=== PATIENT | male | born 1970 | race American Indian/Alaskan Native ===

== ENCOUNTER 2023-07-30 21:01 | Emergency (ER) | payer MEDICARE ==
[2023-07-30 21:29] VITALS: TEMP 97.8
[2023-07-30] MEDS ORDERED: Sodium Chloride 0.9% 1000 ML 1,000 ML ONE (21:41)
[2023-07-30 21:42] LABS: Absolute Neutrophil Ct (ANC) 6.41 x10^3/uL (1.4-6.9); BASOPHIL % 0.6 % (0.0-0.4); Basophil (Absolute #) 0.06 x10^3/uL (0-0.4); Eosinophil % 0.7 % (0.00-5.0); Eosinophil (Absolute #) 0.07 x10^3/uL (0-0.5); Hematocrit 44.1 % (42-50); Hemoglobin 14.9 g/dL (12.5-18.0); Lymphocyte (Absolute #) 2.41 x10^3/uL (1.0-4.6); Lymphocytes % 24.8 % (24.0-44.0); Mean Corpuscular Hemoglobin 31.8 pg (26-32); Mean Corpuscular Hgb Concent. 33.8 g/dL (32-36); Mean Platelet Volume 10.6 fL (7.5-11.0); Monocyte (Absolute #) 0.66 x10^3/uL (0.0-1.3); Monocytes % 6.8 % (0.0-12.0); Neutrophil % 66.1 % (36.0-66.0); Platelet Count 240 x10^3/uL (150-450); Red Blood Count 4.69 x10^6/uL (4.1-5.6); Red Cell Distribution Width 14.6 % (11.5-14.0); White Blood Count 9.7 x10^3/uL (4.0-10.5)
[2023-07-30] MEDS: Sodium Chloride 0.9% 1000 ML 1,000 ML IV STA (21:44)
[2023-07-30 21:48] LABS: ALBUMIN 4.9 g/dL (3.5-5.0); ANION GAP 15.9 MEQ/L (5-15); BILIRUBIN,TOTAL 0.5 mg/dL (0.2-1.3); Calcium 10.1 mg/dL (8.4-10.2); Creatinine 1 1.08 mg/dL (0.66-1.25); EST GLOMERULAR FILTRATION RATE 83.1 ML/MIN; Total Protein 8.7 g/dL (6.3-8.2)
[2023-07-30 22:16] LABS: ADD URINE CULTURE? NO (NO); Appearance Clear (Clear); Bacteria None Seen /HPF (None Seen); Bilirubin Negative (Negative); Blood Negative (Negative); Epithelial Cells None Seen /HPF (None Seen); Glucose, Urine Negative (Negative); Hyaline Casts NONE SEEN /LPF (0-2); Ketones Negative (Negative); Leukocyte Esterase Negative (Negative); Nitrite Negative (Negative); Ph 5.5 (4.6-8.0); Protein,Urine Dip Negative (Negative); RBC 0-2 /HPF (0-5); Specific Gravity <=1.005 (1.005-1.030); Urobilinogen 0.2 mg/dL (0.2); WBC 0-2 /HPF (0-5)
[2023-07-30 22:28] LABS: Amphetamine,Urine NEGATIVE (NEGATIVE); Barbiturate,Urine NEGATIVE (NEGATIVE); Benzodiazepine,Urine NEGATIVE (NEGATIVE); Cocaine,Urine NEGATIVE (NEGATIVE); Methadone,Urine NEGATIVE (NEGATIVE); Opiate,Urine NEGATIVE (NEGATIVE); PCP,Urine NEGATIVE (NEGATIVE); THC,Urine NEGATIVE (NEGATIVE)
--- NOTE | 2023-07-30 22:57 | ERPHSYRPT ---
- History of Present Illness Time Seen by Provider: 07/30/23 21:10 Source: patient Exam Limitations: no limitations Patient Subjective Stated Complaint: pt states he was smoking a cigarette and began to cough. pt states he passed out for 5 minutes. pt states he was told he had a black spot on his left lung Triage Nursing Assessment: pt ambulated into the er; pt is axo x4; answering question appropriately; c/o syncope; pupils 3 mm and PERRL; strong marlene goldbeater and pushes; pt is diaphoretic; skin PW; dry hacking cough present; clear lung sounds in all lobes; dry hacking cough present; pt oxygen level was 90% on room air; O2 now 93% on 2L; tachycardic Physician History: This is a morbidly obese male who is a patient of Dr. Brito and presents to the emergency department soon after having a syncopal episode. The syncopal episode occurred after several coughing episodes. Patient states that he has had similar episodes at least 3 times in the last few months. Patient stated that he did use alcohol and marijuana prior to arrival. He stated "I passed out x 5 minutes". He was told that he has a "black spot" on his lungs. He does not recall which side. Patient has a history of anxiety, diabetes, gastroesophageal reflux disease, and hyperlipidemia. Patient denies chest pain. He denies shortness of breath, although, his room air oxygen saturation level on arrival is 90%. Timing/Duration: today Severity: mild Character of Deficits: none Deficits: no difficulties Baseline/Normal Cognition: alert oriented x 3 Current Cognition: alert oriented x 3 Baseline Gait: walks w/o assistance Associated Symptoms: denies symptoms Allergies/Adverse Reactions: latex Allergy (Verified 07/30/23 21:08) Sulfa (Sulfonamide Antibiotics) Allergy (Verified 07/30/23 21:08) tuberculin, purified protein deriva Allergy (Verified 07/30/23 21:08) Home Medications: Atorvastatin Calcium 40 mg PO DAILY 07/30/23 [History] Cariprazine HCl [Vraylar] 3 mg PO DAILY 07/30/23 [History] Furosemide 40 mg [Lasix 40 MG] 40 mg PO BID 07/30/23 [History] Metformin HCl 500 mg [Glucophage 500 MG] 500 mg PO BID 07/30/23 [History] Omeprazole Magnesium 20 mg PO DAILY 07/30/23 [History] Sertraline HCl 100 mg PO BID 07/30/23 [History] Tirzepatide [Mounjaro] 10 mg SQ WEEKLY 07/30/23 [History] clonazePAM [Clonazepam] 1 mg PO TID 07/30/23 [History] Hx Tetanus, Diphtheria Vaccination/Date Given: Yes Hx Influenza Vaccination/Date Given: Yes Hx Pneumococcal Vaccination/Date Given: Yes Immunizations Up to Date: No Travel Risk - International Travel Have you traveled outside of the country in past 3 weeks: No - Emerging Infectious Disease Are you exhibiting symptoms associated with any current EIDs: No - Review of Systems Constitutional: No Symptoms Eyes: No Symptoms Ears, Nose, & Throat: No Symptoms Respiratory: No Symptoms Cardiac: No Symptoms Abdominal/Gastrointestinal: No Symptoms Genitourinary Symptoms: No Symptoms Musculoskeletal: No Symptoms Skin: No Symptoms Neurological: Other (Syncopal episode prior to arrival) Psychological: No Symptoms Endocrine: No Symptoms Hematologic/Lymphatic: No Symptoms Immunological/Allergic: No Symptoms All Other Systems: Reviewed and Negative - Past Medical History Pertinent Past Medical History: Yes Neurological History: Peripheral Neuropathy Cardiac History: High Cholesterol Endocrine Medical History: Diabetes Type II Musculoskeletal History: Arthritis GI Medical History: Diverticulosis, GERD, Hernia Psycho-Social History: Anxiety, Bipolar, Depression Male Reproductive Disorders: No Pertinent History - Past Surgical History Past Surgical History: Yes Gastrointestinal: Hernia Repair - Social History Smoking Status: Current every day smoker Exposure to second hand smoke: Yes Drug Use: marijuana - Nursing Vital Signs Nursing Vital Signs: Initial Vital Signs Temperature 97.8 F 07/30/23 21:08 Pulse Rate 115 H 07/30/23 21:08 Blood Pressure 117/74 07/30/23 21:08 O2 Sat by Pulse Oximetry 93 L 07/30/23 21:08 Pain Scale Pain Intensity 8 - [place] Coma Scale Best Eye Response ([place]): (4) open spontaneously Best Verbal Response ([place]): (5) oriented Best Motor Response ([place]): (6) obeys commands [place] Total: 15 - Physical Exam General Appearance: no apparent distress, alert, anxiety, obese Eye Exam: bilateral eye: normal inspection, PERRL, EOMI Ears, Nose, Throat Exam: normal ENT inspection, moist mucous membranes Neck Exam: normal inspection, non-tender, supple, full range of motion Respiratory: normal breath sounds, lungs clear, airway intact, No chest tenderness, No respiratory distress Cardiovascular: tachycardia Gastrointestinal: soft, normal bowel sounds, No tenderness Rectal Exam: not done Back Exam: normal inspection, normal range of motion, No CVA tenderness, No vertebral tenderness Extremity Exam: normal inspection, normal range of motion, pelvis stable Mental Status: alert, oriented x 3, cooperative residential youth counselor Exam: normal hearing, normal speech, PERRL Motor/Sensory: no motor deficit, no sensory deficit Skin Exam: normal color, warm, dry SpO2 Interpretation: borderline oxygenation SpO2: 93 O2 Delivery: Room Air - Course Nursing assessment & vital signs reviewed: Yes EKG Interpreted by Me: RATE ([id number]), Sinus Tach, NORMAL AXIS, NORMAL INTERVALS, NORMAL QRS, NORMAL ST-T, Other (No acute ischemia on today's twelve-lead EKG.) Ordered Tests: Active Orders 24 hr Category Date Time Status Zigzag Tunnel Elastic Operator STAT Care 07/30/23 21:32 Active Clean Catch Urine Specimen STAT Care 07/30/23 21:32 Active EKG-ER Only STAT Care 07/30/23 21:32 Active IV Insertion STAT Care 07/30/23 21:32 Active Pulse Oximetry (ED) STAT Care 07/30/23 21:32 Active HEAD WITHOUT CONTRAST [CT] Stat Exams 07/30/23 21:32 Completed CBC W DIFF Stat Lab 07/30/23 21:30 Completed CMP Stat Lab 07/30/23 21:30 Completed ETHYL ALCOHOL Stat Lab 07/30/23 21:30 Completed TROPONIN Q4H Lab 07/30/23 21:30 Completed UA W/RFX UR CULTURE Stat Lab 07/30/23 22:05 Completed Urine Triage Profile Stat Lab 07/30/23 22:05 Completed Medication Summary Discontinued Medications Generic Name Dose Route Start Last Admin Trade Name Freq PRN Reason Stop Dose Admin Sodium Chloride 1,000 mls @ 999 mls/hr 07/30/23 21:32 07/30/23 22:56 Sodium Chloride 0.9% 1000 Ml IV 07/30/23 22:32 Infused .Q1H1M STA Infusion Sodium Chloride Confirm 07/30/23 21:41 Sodium Chloride 0.9% 1000 Ml Administered 07/30/23 21:42 Dose 1,000 mls @ ud .ROUTE .[facility] Lab/Rad Data: Laboratory Result Diagrams 07/30/23 21:30 07/30/23 21:30 Laboratory Results 07/30/23 07/30/23 07/30/23 Range/Units 22:05 22:05 21:30 WBC (4.0-10.5) x10^3/uL RBC (4.1-5.6) x10^6/uL Hgb (12.5-18.0) g/dL Hct (42-50) % MCV (78-100) fL MCH (26-32) pg MCHC (32-36) g/dL RDW (11.5-14.0) % Plt Count (150-450) x10^3/uL MPV (7.5-11.0) fL Gran % (36.0-66.0) % Immature Gran % (Auto) (0.00-0.4) % Nucleat RBC Rel Count (0.00-0.1) % Eos # (Auto) (0-0.5) x10^3/uL Immature Gran # (Auto) (0.00-0.03) x10^3u/L Absolute Lymphs (auto) (1.0-4.6) x10^3/uL Absolute Monos (auto) (0.0-1.3) x10^3/uL Absolute Nucleated RBC (0.00-0.01) x10^3u/L Lymphocytes % (24.0-44.0) % Monocytes % (0.0-12.0) % Eosinophils % (0.00-5.0) % Basophils % (0.0-0.4) % Absolute Granulocytes (1.4-6.9) x10^3/uL Basophils # (0-0.4) x10^3/uL Sodium (135-145) mmol/L Potassium (3.5-5.1) mmol/L Chloride (98-107) mmol/L Carbon Dioxide (22-30) mmol/L Anion Gap (5-15) MEQ/L BUN (9-20) mg/dL Creatinine (0.66-1.25) mg/dL Estimated GFR ML/MIN Glucose (74-106) mg/dL Calcium (8.4-10.2) mg/dL Total Bilirubin (0.2-1.3) mg/dL AST (17-59) U/L ALT (0-50) U/L Alkaline Phosphatase (38-126) U/L Troponin I < 0.012 (0.000-0.033) ng/mL Serum Total Protein (6.3-8.2) g/dL Albumin (3.5-5.0) g/dL Urine Color Yellow (Yellow) Urine Appearance Clear (Clear) Urine pH 5.5 (4.6-8.0) Ur Specific Peterman <=1.005 (1.005-1.030) Urine Protein Negative (Negative) Urine Glucose (UA) Negative (Negative) mg/dL Urine Ketones Negative (Negative) Urine Blood Negative (Negative) Urine Nitrite Negative (Negative) Urine Bilirubin Negative (Negative) Urine Urobilinogen 0.2 (0.2) mg/dL Ur Leukocyte Esterase Negative (Negative) U Hyaline Cast (Auto) NONE SEEN (0-2) /LPF Urine Microscopic RBC 0-2 (0-5) /HPF Urine Microscopic WBC 0-2 (0-5) /HPF Ur Epithelial Cells None Seen (None Seen) /HPF Urine Bacteria None Seen (None Seen) /HPF Urine Culture Reflexed NO (NO) Urine Opiates Level NEGATIVE (NEGATIVE) Ur Methadone NEGATIVE (NEGATIVE) Urine Barbiturates NEGATIVE (NEGATIVE) Ur Phencyclidine (PCP) NEGATIVE (NEGATIVE) Urine Amphetamine NEGATIVE (NEGATIVE) U Benzodiazepine Level NEGATIVE (NEGATIVE) Urine Cocaine NEGATIVE (NEGATIVE) Urine Marijuana (THC) NEGATIVE (NEGATIVE) Ethyl Alcohol (0-10) mg/dL 07/30/23 07/30/23 Range/Units 21:30 21:30 WBC 9.7 (4.0-10.5) x10^3/uL RBC 4.69 (4.1-5.6) x10^6/uL Hgb 14.9 (12.5-18.0) g/dL Hct 44.1 (42-50) % MCV 94.0 (78-100) fL MCH 31.8 (26-32) pg MCHC 33.8 (32-36) g/dL RDW 14.6 H (11.5-14.0) % Plt Count 240 (150-450) x10^3/uL MPV 10.6 (7.5-11.0) fL Gran % 66.1 H (36.0-66.0) % Immature Gran % (Auto) 1.0 H (0.00-0.4) % Nucleat RBC Rel Count 0.0 (0.00-0.1) % Eos # (Auto) 0.07 (0-0.5) x10^3/uL Immature Gran # (Auto) 0.10 H (0.00-0.03) x10^3u/L Absolute Lymphs (auto) 2.41 (1.0-4.6) x10^3/uL Absolute Monos (auto) 0.66 (0.0-1.3) x10^3/uL Absolute Nucleated RBC 0.00 (0.00-0.01) x10^3u/L Lymphocytes % 24.8 (24.0-44.0) % Monocytes % 6.8 (0.0-12.0) % Eosinophils % 0.7 (0.00-5.0) % Basophils % 0.6 (0.0-0.4) % Absolute Granulocytes 6.41 (1.4-6.9) x10^3/uL Basophils # 0.06 (0-0.4) x10^3/uL Sodium 140 (135-145) mmol/L Potassium 4.0 (3.5-5.1) mmol/L Chloride 104 (98-107) mmol/L Carbon Dioxide 24 (22-30) mmol/L Anion Gap 15.9 H (5-15) MEQ/L BUN 16 (9-20) mg/dL Creatinine 1.08 (0.66-1.25) mg/dL Estimated GFR 83.1 ML/MIN Glucose 124 H (74-106) mg/dL Calcium 10.1 (8.4-10.2) mg/dL Total Bilirubin 0.50 (0.2-1.3) mg/dL AST 23 (17-59) U/L ALT 31 (0-50) U/L Alkaline Phosphatase 85 (38-126) U/L Troponin I (0.000-0.033) ng/mL Serum Total Protein 8.7 H (6.3-8.2) g/dL Albumin 4.9 (3.5-5.0) g/dL Urine Color (Yellow) Urine Appearance (Clear) Urine pH (4.6-8.0) Ur Specific [place] (1.005-1.030) Urine Protein (Negative) Urine Glucose (UA) (Negative) mg/dL Urine Ketones (Negative) Urine Blood (Negative) Urine Nitrite (Negative) Urine Bilirubin (Negative) Urine Urobilinogen (0.2) mg/dL Ur Leukocyte Esterase (Negative) U Hyaline Cast (Auto) (0-2) /LPF Urine Microscopic RBC (0-5) /HPF Urine Microscopic WBC (0-5) /HPF Ur Epithelial Cells (None Seen) /HPF Urine Bacteria (None Seen) /HPF Urine Culture Reflexed (NO) Urine Opiates Level (NEGATIVE) Ur Methadone (NEGATIVE) Urine Barbiturates (NEGATIVE) Ur Phencyclidine (PCP) (NEGATIVE) Urine Amphetamine (NEGATIVE) U Benzodiazepine Level (NEGATIVE) Urine Cocaine (NEGATIVE) Urine Marijuana (THC) (NEGATIVE) Ethyl Alcohol 146 H (0-10) mg/dL - Progress Progress: improved Progress Note: 07/30/23 22:56 My medical decision making and the assignment of moderate complexity to this patient's medical issue is based on review of the patient's past medical history, review the patient's medication list, review the patient drug allergy list, history present illness and physical findings on examination. The workup in this patient includes placement of intravenous line, twelve-lead EKG, troponin level, chest x-ray, CBC, CMP, urinalysis, ethyl alcohol level, CT scan of the head. Differential diagnosis includes alcohol intoxication, illicit drug intoxication, vasovagal reaction from coughing, arrhythmia, myocardial infarction, electrolyte abnormalities, dehydration, urinary tract infection 07/30/23 23:26 I interpreted the patient's laboratory data results. The patient does have an elevated alcohol level at 146. Patient has no other significant, acute, emergent medical issue based on the patient's laboratory results. CT scan of the head without contrast shows no acute intracranial abnormality. This study was interpreted by the radiologist. I reviewed the impression. Medical Desision Making - Diagnostic Testing Diagnostic test were ordered, analyzed, and reviewed by me: Yes Radiological Interpretation: Reviewed by me, Teleradiologist Report - Risk of complications Low Risk: Low risk of morbidity from additional dx testing or treatment - Departure Departure Disposition: Home Clinical Impression: Episode of syncope, Vasovagal response Condition: Stable Critical Care Time: No Referrals: JULIUS BRITO DO [Primary Care Provider] - Follow up/PCP as directed Additional Instructions: Avoid alcohol use. Avoid tobacco use. Avoid illicit drug use. Avoid all of these chemicals until you have been fully evaluated by your primary care provider from the neurologic and cardiology standpoint. Take your medications as prescribed.
--- NOTE | 2023-07-30 23:17 | XRAY ---
CLINICAL HISTORY: Syncope COMPARISON: None. TECHNIQUE: Axial non-contrast CT scan of the brain was performed from the skull base to the high parietal region. Saggital and coronal reconstructions were also obtained. One of the following dose reduction techniques were utilized for this exam: Automated exposure control, adjustment of the mA and/or kV according to patient size, use of iterative reconstruction. FINDINGS: The visualized brain parenchyma shows a normal appearance. Martinez-white matter differentiation is maintained. No midline shifts or deformity. No intracerebral or extra axial hematoma. Normal size and configuration of the cerebral ventricles. Normal CT appearance of the posterior fossa structures namely the cerebellar hemispheres, brainstem and cerebellar peduncles. The IACs are unremarkable. The cerebello-pontine angles are clear. The osseous structures in the skull base are unremarkable. No definite calvarium fractures. The scanned paranasal sinuses are clear. Nasal septum is deviated towards the right side. IMPRESSION: No acute intracranial abnormality is identified. Electronically Signed by: Good Schreiber MD. (07/30/2023 23:13:16 EDT)
[2023-07-30 23:58] VITALS: BP 133/106; PULSE 108; RESP 22; O2SAT 94
== END 2023-07-30 23:58 | disposition home or self-care (01) ==
LOC: ED 21:01
DX: R55 Syncope and collapse (principal); R05.9 Cough, unspecified; E78.5 Hyperlipidemia, unspecified; E11.42 Type 2 diabetes mellitus with diabetic polyneuropathy; Z79.84 Long term (current) use of oral hypoglycemic drugs; Z79.85 Long-term (current) use of injectable non-insulin antidiabetic drugs; Z79.899 Other long term (current) drug therapy; Z72.0 Tobacco use
CPT/HCPCS: 36000; 36415; 70450; 80053; 80307; 81001; 82077; 84484; 85025; 93005; 93041; 94760; 96360; 99284